=== PATIENT | female | born 2005 | race Two or more races ===

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

== ENCOUNTER 2025-03-18 17:49 | Emergency (ER) | payer MEDICAID, SELFPAY ==
[2025-03-18 17:50] VITALS: BMI 25.7
[2025-03-18 18:14] VITALS: BP 130/90; PULSE 80; RESP 18; TEMP 36.9; O2SAT 100
--- NOTE | 2025-03-18 18:25 | XR_ITS ---
Examination: Pelvic ultrasound, transabdominal, complete Technique: Transabdominal ultrasound of the pelvis performed using grayscale imaging Date and time of exam: March 18, 2025, 2126 hrs. Indications: Pelvic pain and vaginal bleeding beginning 2 months ago. Findings: Uterus 8.0 cm no uterine mass or intrauterine gestation Endometrial stripe 0.7 cm Right ovary 2.9 cm arterial flow Left ovary 2.8 cm arterial flow Impression: Negative study
--- NOTE | 2025-03-18 18:25 | PD.EDRME ---
Rapid Medical Screening Exam RME Arrival date/time: 03/18/25 17:49 Chief Complaint: Urogenital-Female Time Seen by Provider: 03/18/25 17:53 Vital signs: Vital Signs Temperature 98.5 F 03/18/25 18:14 Pulse Rate 80 03/18/25 18:14 Respiratory Rate 18 03/18/25 18:14 Blood Pressure 130/90 H 03/18/25 18:14 Pulse Oximetry (%) 100 03/18/25 18:14 Oxygen Delivery Method Room Air 03/18/25 18:14 E Narrative: Vaginal bleeding x3 months after Depo injection
[2025-03-18 18:46] LABS: Basophils # (Auto) 0.0 Thou/mm3 (0.0-0.2); Basophils % (Auto) 1 % (0-2.5); Eosinophils # (Auto) 0.0 Thou/mm3 (0.0-0.5); Eosinophils % (Auto) 1 % (0-10); Hematocrit 40.8 % (36.0-46.0); Hemoglobin 13.4 g/dL (12.0-16.0); Immature Granulocytes Auto 0.01 Thou/mm3 (0.00-0.00); Lymphocytes # (Auto) 2.3 Thou/mm3 (1.0-4.8); Lymphocytes % (Auto) 41 % (10-50); Mean Corpuscular HGB Conc 32.8 g/dl (31.0-37.0); Mean Corpuscular Hemoglobin 25.7 pg (25.0-35.0); Mean Corpuscular Volume 78 fL (80-100); Monocytes # (Auto) 0.4 Thou/mm3 (0.0-0.8); Monocytes % (Auto) 7 % (0-12); Neutrophils # (Auto) 2.8 Thou/mm3 (1.8-7.7); Neutrophils % (Auto) 50 % (37-80); Nucleated Red Blood Cell # 0.00 Thou/mm3 (0.00-0.00); Nucleated Red Blood Cell % 0 /100 WBC (0); Platelet Count 296 Thou/mm3 (140-440); RDW Standard Deviation 39.5 fL (36.4-46.3); Red Blood Count 5.21 Miln/mm3 (4.00-5.20); White Blood Count 5.6 Thou/mm3 (4.5-11.0)
[2025-03-18 18:54] LABS: Collection Type, Urine Clean Catch
[2025-03-18 19:04] LABS: Alanine Aminotransferase 25 U/L (10-49); Albumin, Serum 5.5 gm/dL (3.5-5.0); Albumin/Globulin Ratio 1.5 (1.2-2.2); Alkaline Phosphatase 111 U/L (46-116); Anion Gap 10 (7-16); Aspartate Amino Transferase 29 U/L (0-34); BUN/Creatinine Ratio 10 Ratio (12-20); Bilirubin,Total 0.5 mg/dL (0.3-1.2); Blood Urea Nitrogen 7 mg/dL (9-23); Calcium 10.7 mg/dL (8.3-10.6); Calcium (Corrected) 10.7 mg/dL (8.5-10.1); Carbon Dioxide 24.7 mMol/L (20.0-31.0); Chloride 104 mMol/L (98-107); Creatinine (Component) 0.7 mg/dL (0.6-1.3); Estimated Creatinine Clearance 112.6 mL/min (>60); Globulin 3.7 gm/dL (2.3-3.5); Glucose 86 mg/dL (74-106); Osmolality,Calculated 274 (275-295); Potassium 4.4 mMol/L (3.4-5.1); Sodium 139 mMol/L (136-145); Total Protein 9.2 gm/dL (5.7-8.2); eGFR > 60 See Note
[2025-03-18 19:06] LABS: Bilirubin,Urine Negative (Negative); Blood,Urine 3+ (Negative); Clarity,Urine Clear (Clear/Hazy); Color,Urine Lt-Yellow (Lt Yel-Yel); Glucose, Urine Negative (Negative); Ketones,Urine Negative (Negative); Leukocyte Esterase,Urine Negative (Negative); Nitrite,Urine Negative (Negative); PH,Urine 6.0 (5.0-7.0); Protein,Urine Negative (Neg - Trace); RBC,Urine 18 /hpf (0-3); Specific Gravity,Urine 1.025 (1.001-1.035); Squamous Epithelial Cell,Urine 4 /hpf (0-5); Urobilinogen,Urine Negative mg/dL (0.0-1.0); WBC,Urine 5 /hpf (0-5)
[2025-03-18 19:09] LABS: HCG Qualitative,Urine Negative
--- NOTE | 2025-03-18 22:48 | EDNOTE_ITS ---
ED OB Contraction Preg RMI/HPI General Chief complaint: Urogenital-Female Stated complaint: VAGINAL BLEEDING FOR 2 MONTHS Time Seen by Provider: 03/18/25 17:53 Arrival date/time: 03/18/25 17:49 This is a case of 20-year-old female with no medical history came into the emergency room due to vaginal bleeding on and off for 3 months after her Depo shots patient have 2 complete patient stated that her menstrual period were normal before December then after she got the Depo shot it become irregular and have prolonged vaginal bleeding due to persistence of the symptoms now with pelvic cramping thus patient decided to sought consult here in the emergency room Limitations: no limitations RME / HPI RME / HPI Narrative: Vaginal bleeding x3 months after Depo injection Related Data Home Medications ?Medication ?Instructions ?Recorded ?Confirmed vit no.95-ferrous 1 tab PO DAILY 10/21/2404/07 fumarate 28 mg-folic acid 800 mcg tablet () Allergies Allergy/AdvReac Type Severity Reaction Status Date / Time No Known Allergies Allergy Verified 03/18/25 17:53 Review of Systems Review of Systems Systems Reviewed: All systems reviewed, normal except as documented Constitutional Constitutional: Reports system reviewed and no additional complaints, except as documented and Reports as per HPI Cardiovascular Cardiovascular: Reports system reviewed and no additional complaints, except as documented and Reports as per HPI Respiratory Respiratory: Reports system reviewed and no additional complaints, except as documented and Reports as per HPI Gastrointestinal Gastrointestinal: Reports system reviewed and no additional complaints, except as documented and Reports as per HPI Musculoskeletal Musculoskeletal: Reports system reviewed and no additional complaints, except as documented and Reports as per HPI Neurologic Neurologic: Reports system reviewed and no additional complaints, except as documented and Reports as per HPI Past Medical History Past Medical History CARDIAC: Negative Congestive Heart Failure RESPIRATORY: Negative Chronic Obstructive Pulmonary Disease (COPD) GENITOURINARY: Negative Renal Disease ENDOCRINE: Negative Diabetes Mellitus Type 1 or Diabetes Mellitus Type 2 Surgical History SURGICAL: Negative Section Social History SMOKING STATUS: Never smoker SUBSTANCE USE: does not use ED Exam General Limitations: Present no limitations General appearance: Present alert, in no apparent distress and other (Patient is awake alert oriented not in distress nontoxic looking well-hydrated well- nourished) Head Head exam: Present atraumatic, normocephalic and normal inspection Eye Eye exam: Present normal appearance, PERRL and EOMI ENT ENT exam: Present normal exam, normal oropharynx and mucous membranes moist Neck Neck exam: Present normal inspection, full ROM and trachea midline; Absent tenderness, meningismus, lymphadenopathy or thyromegaly Chest Chest inspection: Present normal inspection and symmetric chest wall rise; Absent tenderness Respiratory Respiratory exam: Present normal lung sounds bilaterally; Absent respiratory distress, wheezes, stridor, accessory muscle use or prolonged expiratory phase Cardiovascular Cardiovascular exam: Present regular rate, normal rhythm and normal heart sounds; Absent bradycardia, tachycardia, irregular rhythm, systolic murmur or diastolic murmur Abdominal Exam Abdominal exam: Present soft and normal bowel sounds; Absent distention, tenderness, guarding, rebound, rigidity, diminished bowel sounds, hyperactive bowel sounds, hypoactive bowel sounds, organomegaly, psoas sign, obturator sign, Pierre's sign, Rovsing's sign or tenderness at McBurney's Point Extremities Exam Extremities exam: Present normal inspection and full ROM Back Exam Back exam: Present normal inspection and full ROM Neurological Exam Neurological exam: Present alert, oriented X3, CN II-XII intact, normal gait and reflexes normal; Absent motor sensory deficit Psychiatric Psychiatric exam: Present normal affect and normal mood Skin Skin exam: Present warm, dry, intact and normal color Course Quality Measures none Orders Category Date Time Status US pelvic complete Stat Exams 03/18/25 18:25 Completed CBC Stat Lab 03/18/25 18:32 Completed CMP [Comprehensive Metabolic Panel] Stat Lab 03/18/25 18:32 Completed HCG Qualitative,Urine Stat Lab 03/18/25 18:39 Completed UA [Urinalysis] Stat Lab 03/18/25 18:39 Completed Vital Signs Vital signs: Vital Signs Temperature 98.5 F 03/18/25 18:14 Pulse Rate 80 03/18/25 18:14 Respiratory Rate 18 03/18/25 18:14 Blood Pressure 130/90 H 03/18/25 18:14 Pulse Oximetry (%) 100 03/18/25 18:14 Oxygen Delivery Method Room Air 03/18/25 18:14 Oxygen saturation is 100% on room air normal Vaginal Bleeding MDM Narrative MDM Narrative: This is a case of 20-year-old female with no medical history came into the emergency room due to vaginal bleeding on and off for 3 months after her Depo shots patient have 2 complete patient stated that her menstrual period were normal before December then after she got the Depo shot it become irregular and have prolonged vaginal bleeding due to persistence of the symptoms now with pelvic cramping thus patient decided to sought consult here in the emergency room physical examination patient is awake alert oriented not in distress nontoxic looking well-hydrated well-nourished excellent skin turgor patient is not pale lungs sound is clear no crackles no rales no retraction no stridor abdomen exam is benign nonsurgical no guarding or rebound no rigidity no tende rness bladder is not distended not tender vital signs stable BP stable not tachycardic not tachypneic not hypoxic and afebrile the rest of the physical examination neurological exam is normal and unremarkable blood test showed no leukocytosis no anemia kidney and liver function is normal no electrolyte imbalance patient urinalysis is normal patient is not platelet is normal patient pelvic ultrasound is also normal at this point patient abnormal vaginal bleeding is possible due to hormonal imbalance patient was advised to plan to follow-up with PCP to be referred to OB professional athletes coach for further evaluation and treatment of abnormal vaginal bleeding for any persistent symptoms worsening symptoms return to the emergency room immediately or call 911 Patient was discharged with comfortable condition walking with stable gait. Patient verbalized no further complains explained diagnosis and answered patient question. Patient is comfortable with the proposed management plan including the need to follow up with his/her primary care physician and any specialist if applicable Discussed patient for any urgent condition or worsening sx, He/She needed to go to emergency room immediately or call 911. Patient acknowledge the responsibility to follow up as instructed and to monitor her/his symptoms. For any persistence of the symptoms for more than 3-5 days return precaution advised. Discussed the result of the test and was given printed discharge instruction Patient data External records reviewed:: [facility] previous records Clinical information provided by:: patient Social determinants that could affect healthcare access:: none Patient has the following chronic illnesses:: None How is presenting disease/condition affected by chronic disease/condition?: no chronic disease Evaluation data The following diagnostics were reviewed and interpreted by me:: lab results and radiology exam(s) Lab and/or radiology exams considered but not ordered:: Reviewed Interpretation Summary: Reviewed Medications / Prescriptions Medications or Prescriptions considered but not ordered:: Given Medication administrations:: Given Consultations Consultation(s) initiated? (list below): No Diagnosis Vaginal Bleeding Differential Diagnosis: dysfunctional uterine bleeding and vaginal bleeding Most likely diagnosis given after review of the tests above:: Abnormal vaginal bleeding Admission Indicated Admission indicated?: not indicated Explain why admission is indicated or not indicated:: Not indicated Admission Request Was there a request for admission?: No Admission Attestation Admission request attestation: Not indicated Disposition Plan Disposition Plan: Discharge Discharge Attestation Discharge Attestation: The patient and all family members were given an opportunity to ask questions and understood the discharge instructions. Discharge instructions specifically effects, indications for sooner follow up or return to the emergency department, and the expected course of current diagnosis. Patient condition: Stable Discharge Plan Plan Patient Disposition: HOME (Self Care) Patient condition on transfer: Stable Prescriptions/Referrals Prescriptions/Med Rec: No Action PNV no.95-ferrous fumarate-FA [] 28 mg iron- 800 mcg tablet 1 tab PO DAILY Patient Comments: TAKE 1 TABLET BY MOUTH ONCE DAILY Referrals: Zurdo Laguerre MD [Primary Care Provider, Family Practice] - In 1 week Carine Ryan CNM [Certified Nurse Theatre Professor, Obstetrics] - 03/19/25 Referral Note: For further evaluation and treatment of abnormal vaginal bleeding and pelvic Problem List Clinical Impression: Abnormal vaginal bleeding, Pelvic cramping Patient/Caregiver Discharge Instructions Education Materials: ED Dysfunctional Uterine Bleeding, ED Pelvic Pain, Unknown Cause Additional Instructions: Follow-up with your primary care physician in 2 days for reevaluation and to be referred to OB professional athletes coach for further evaluation and treatment of abnormal vaginal bleeding and pelvic cramping recurrence persistent worsening symptoms or any emergent concern call 911 or go to the nearest emergency room it is very important to see an OB professional athletes coach for your abnormal vaginal bleeding and possible change of control method take Tylenol or Motrin as needed for pain keep hydrated Print Language: [place] Stand Alone Forms: Bibi Award Info., Patient Portal Info Letter PA/ENGINEERING ADMINISTRATOR Supervising Physician PA/ENGINEERING ADMINISTRATOR Supervising Physician: Dr. Obregon
== END 2025-03-18 23:02 | disposition home or self-care (01) ==
PROVIDERS: Physician Assistant; Emergency Provider Emergency Medicine; PCP Family Medicine
DX: N93.9 Abnormal uterine and vaginal bleeding, unspecified (principal); R10.20 Pelvic and perineal pain unspecified side
CPT/HCPCS: 36415; 76856; 80053; 81001; 81025; 85025; 99283